=== PATIENT | female | born 1995 | race Hispanic/Latino ===

== ENCOUNTER 2022-01-03 16:17 | Outpatient (CLI) | payer SELFPAY ==
[2022-01-04 00:44] LABS: SARS-CoV-2 PCR by NAA Not Detected (NotDetected)
== END 2022-01-03 16:18 | disposition home or self-care (01) ==
LOC: EDUNIT# 16:17 → CSHLAB 16:17
PROVIDERS: ATTEND Family Medicine
DX: Z20.822 Contact with and (suspected) exposure to COVID-19 (principal)
CPT/HCPCS: U0003; U0005

== ENCOUNTER 2022-01-04 09:02 | Inpatient (IN) | payer MEDICAID, OTHER, SELFPAY ==
[~2022-01-04 09:02] MED LIST: Bupivacaine 0.25% HCL 30 ML VIAL ONE; Bupivacaine/Epinephrine 0.25% 30 ML VIAL ONE
[2022-01-04] MEDS ORDERED: Promethazine HCl 25 MG/ML VIAL IM PRN ×2 (09:08→18:56)
[2022-01-04] MEDS ORDERED: Diphenoxylate HCl/Atropine Tablet PO PRN (09:08)
[2022-01-04] MEDS ORDERED: Ibuprofen 800 MG TAB PO PRN (09:08)
[2022-01-04] MEDS ORDERED: HYDROcodone/Acetaminophen 5/325 mg Tablet PO PRN ×3 (09:08→18:56)
[2022-01-04] MEDS ORDERED: Carboprost 250 MCG/ML AMP IM PRN (09:08)
[2022-01-04] MEDS ORDERED: NS w/ Oxytocin 30 units 500 ML IV SCH ×3 (09:08→18:56)
[2022-01-04] MEDS ORDERED: Methylergonovine 0.2 MG/ML VIAL IM PRN (09:08)
[2022-01-04] MEDS ORDERED: hydrALAZINE 20 MG/ML VIAL SLOW IVP PRN ×2 (09:08→18:56)
[2022-01-04] MEDS ORDERED: Acetaminophen 500 MG TAB PO PRN (09:08)
[2022-01-04] MEDS ORDERED: Lidocaine 1% (PF) 30 ML VIAL SC PRN (09:08)
[2022-01-04] MEDS ORDERED: Misoprostol 200 MCG TAB PR PRN (09:08)
[2022-01-04] MEDS ORDERED: Ondansetron PF 4 MG/2 ML Vial IVP PRN ×2 (09:08→18:56)
[2022-01-04] MEDS ORDERED: Butorphanol Tartrate 1 MG/ML VIAL SLOW IVP PRN (09:08)
[2022-01-04] MEDS: Lactated Ringer's 1,000 ML IV SCH ×2 (09:46→12:53)
[2022-01-04 09:51] VITALS: BMI 38.3
[2022-01-04] MEDS ORDERED: NS w/ Oxytocin 30 units 500 ML ONE (10:20)
[2022-01-04 11:13] LABS: Hemoglobin 10.6 g/dL (12.0-15.5); Mean Corpuscular HGB CONC 32.6 g/dL (32.0-36.0); Mean Corpuscular Hemoglobin 28.1 pg (27.0-33.0); Mean Corpuscular Volume 86.2 fl (81.6-98.3); Mean Platelet Volume 12.6 fl (7.4-10.4); Platelet Count 167 10x3/uL (150-450); RBC Distribution Width 13.9 % (11.5-14.5); Red Blood Cell (RBC) Count 3.77 10x6/uL (3.90-5.03); White Blood Cell (WBC) Count 9.9 10x3/uL (3.5-10.5)
[2022-01-04 11:37] LABS: Hep B Surf Ag Non-Reactive S/CO (NonReactive); Syphilis Antibody Nonreactive (Nonreactive); Syphilis Antibody Index 0.03 S/CO (<1.00 Non-Reactive)
[2022-01-04 11:44] LABS: HBSAg Index 0.21 S/CO (0-0.99)
[2022-01-04] MEDS ORDERED: Fentanyl 2 mcg/Bup 0.1% Cadd 100 ML ONE (12:38)
[2022-01-04] MEDS ORDERED: Lanolin Ointment 7 GM TUBE TOP PRN (18:56)
[2022-01-04] MEDS ORDERED: diphenhydrAMINE 25 MG CAP PO PRN (18:56)
[2022-01-04] MEDS ORDERED: Bisacodyl 10 MG SUPP PR PRN (18:56)
[2022-01-04] MEDS ORDERED: Boostrix 0.5 ML (Tdap) VIAL IM ONE (18:56)
[2022-01-04] MEDS ORDERED: Benzocaine-Menthol 82.5 ML CAN TOP PRN (18:56)
[2022-01-04] MEDS ORDERED: Milk Of Magnesia 30 ML UDCUP PO PRN (18:56)
[2022-01-04] MEDS ORDERED: Preparation H Ointment 28 GM TUBE PR PRN (18:56)
[2022-01-04] MEDS: Docusate 100 MG CAP PO SCH (22:41)
[2022-01-04] MEDS: Ibuprofen 800 MG TAB PO SCH (22:41)
[2022-01-05] MEDS ORDERED: Butorphanol Tartrate 1 MG/ML VIAL ONE (04:03)
[2022-01-05] MEDS ORDERED: Carboprost 250 MCG/ML AMP ONE (04:04)
[2022-01-05] MEDS ORDERED: Misoprostol 200 MCG TAB ONE ×2 (04:04→04:43)
[2022-01-05] MEDS ORDERED: Methylergonovine 0.2 MG/ML VIAL ONE (04:04)
[2022-01-05] MEDS ORDERED: ceFAZolin 2 GM/Dextrose 50 ML IVPB ONE (04:18)
[2022-01-05] MEDS ORDERED: Tranexamic Acid 1,000 MG/10 ML VIAL ONE (04:58)
[2022-01-05] MEDS: Tranexamic Acid 1,000 MG/10 ML VIAL ONE ×2 (05:24→07:14)
[2022-01-05 06:53] LABS: D-Dimer Test 23.06 mg/L FEU (0.19-0.50); PTT 32.5 sec (22.0-33.0); Prothrombin Time 10.9 sec (9.5-12.1)
[2022-01-05 06:57] LABS: #Monocytes 1.1 10x3/uL (0.0-1.1); #Neutrophils 9.2 10x3/uL (1.5-8.4); %Basophils 0.2 % (0.0-2.0); %Eosinophils 0.2 % (0.0-6.0); %Lymphocytes 17.5 % (18.0-47.0); %Monocytes 8.4 % (0.0-10.0); %Neutrophils 73.1 % (40.0-75.0); Hemoglobin 10.2 g/dL (12.0-15.5); Mean Corpuscular HGB CONC 33.2 g/dL (32.0-36.0); Mean Corpuscular Hemoglobin 28.3 pg (27.0-33.0); Platelet Count 152 10x3/uL (150-450); RBC Distribution Width 13.9 % (11.5-14.5); Red Blood Cell (RBC) Count 3.61 10x6/uL (3.90-5.03); White Blood Cell (WBC) Count 12.6 10x3/uL (3.5-10.5)
[2022-01-05] MEDS ORDERED: Diphenoxylate HCl/Atropine Tablet PO PRN (08:07)
[2022-01-05] MEDS: Ferrous Sulfate 325 MG TAB PO SCH ×2 (08:09→14:33)
[2022-01-05] MEDS: Ibuprofen 800 MG TAB PO SCH ×3 (08:10→21:52)
[2022-01-05] MEDS: Docusate 100 MG CAP PO SCH ×2 (09:50→21:52)
[2022-01-05] MEDS: Prenatal Vitamin 1 TAB PO SCH (09:50)
[2022-01-05] MEDS ORDERED: Misoprostol 200 MCG TAB PO SCH (11:00)
[2022-01-05] MEDS: Misoprostol 200 MCG TAB PO SCH ×3 (11:05→21:51)
[2022-01-06] MEDS: Ibuprofen 800 MG TAB PO SCH (04:53)
[2022-01-06] MEDS: Ferrous Sulfate 325 MG TAB PO SCH (07:48)
[2022-01-06] MEDS: Docusate 100 MG CAP PO SCH (08:24)
[2022-01-06] MEDS: Prenatal Vitamin 1 TAB PO SCH (08:24)
[2022-01-06 11:30] VITALS: BP 114/58; TEMP 98.2
== END 2022-01-06 14:40 | disposition home or self-care (01) | DRG 806 ==
LOC: CSHLD 09:02 → CSHPP 21:26 → CSHLD 01-05 06:32 → CSHPP 01-05 13:45
PROVIDERS: ADMIT Family Medicine; ATTEND Family Medicine
PROC: 10E0XZZ Delivery of Products of Conception, External Approach (ICD-10-PCS; principal; 2022-01-04)
PROC: 0KQM0ZZ Repair Perineum Muscle, Open Approach (ICD-10-PCS; 2022-01-04)
PROC: 10907ZC Drainage of Amniotic Fluid, Therapeutic from Products of Conception, Via Natural or Artificial Opening (ICD-10-PCS; 2022-01-04)
PROC: 3E033VJ Introduction of Other Hormone into Peripheral Vein, Percutaneous Approach (ICD-10-PCS; 2022-01-04)
DX: O70.1 Second degree perineal laceration during delivery (principal); O72.1 Other immediate postpartum hemorrhage; Z37.0 Single live birth; Z3A.39 39 weeks gestation of pregnancy; Z20.822 Contact with and (suspected) exposure to COVID-19
CPT/HCPCS: 36415; 36430; 51702; 85025; 85027; 85049; 85300; 85362; 85379; 85384; 85610; 85730; 86780; 86850; 86900; 86901; 87340; J0595; J2210; J2590; J3490; J7120; P9016; S0020; U0003; U0005